=== PATIENT | male | born 1940 | race Caucasian/White ===

== ENCOUNTER → 2016-06-04 09:39 | Outpatient (CLI) | payer MEDICARE, OTHER ==
[2015-11-14 08:33] VITALS: BMI 34.0
[~2016-06-04 09:39] MED LIST: ALDACTONE25 MG PO; ALEVE220 MG PO; ARICEPT10 MG PO; ASPIRIN325 MG PO; BAYER CHEWABLE81 MG PO; BROVANA15 MCG/2 M INH; BYSTOLIC5 MG PO; COZAAR100 MG PO; DEPAKOTE500 MG PO; DURAGESIC1 PATCH .1 TRANSDERM; EFFEXOR75 MG PO; FLOMAX0.4 MG PO; FLUTICASONE PRO16 GM NS; FUROSEMIDE20 MG PO; GEMFIBROZIL600 MG PO; HYDROCODONE-APA1 TAB PO; LANTUS SOL100 UNIT/1 SQ; MAG-OXIDE400 MG PO; METROGEL 0.75 %45 GM TOPICAL; METROGEL 0.75 %45 GM TP; NITROSTAT0.6 MG SL; NORVASC2.5 MG PO; NOVOLOG100 U/M1 SQ; PERCOCET 10/3251 TA1 PO; PLAVIX75 MG PO; POTASSIUM99 M1 PO; PRAVACHOL40 MG PO; PRILOSEC20 MG PO; PROSCAR5 MG PO; PROTONIX40 MG PO; PROVENTIL/2.5 MG/3 M INH; PULMICORT0.25 MG/1 INH; SINGULAIR10 MG PO; SYNTHROID25 MCG PO; TESTOSTERON200 MG/ML IM; TYLENOL PM1 TAB PO; UROCIT-K10 MEQ PO; VITAMIN B-121000 MCG PO; VITAMIN B-12500 MCG PO; XANAX0.25 MG PO; ZYLOPRIM100 MG PO
== END | disposition home or self-care (01) ==
LOC: D.CT 09:39
DX: M54.16 Radiculopathy, lumbar region (principal)

== ENCOUNTER → 2016-06-28 07:44 | Outpatient (CLI) | payer MEDICARE, OTHER ==
[2015-11-14 08:33] VITALS: BMI 34.0
== END | disposition home or self-care (01) ==
LOC: D.RT 07:44
DX: J45.909 Unspecified asthma, uncomplicated (principal)

== ENCOUNTER 2016-11-06 11:51 | Emergency (ER) | payer MEDICARE, OTHER ==
[2015-11-14 08:33] VITALS: BMI 34.0
== END 2016-11-06 14:58 | disposition home or self-care (01) ==
LOC: D.ER 11:51
DX: G91.9 Hydrocephalus, unspecified (principal); W19.XXXA Unspecified fall, initial encounter; Y93.89 Activity, other specified; Y92.89 Other specified places as the place of occurrence of the external cause; C44.90 Unspecified malignant neoplasm of skin, unspecified